=== PATIENT | female | born 1980 | race African-American/Black ===

== ENCOUNTER 2024-05-19 09:37 | Emergency (ER) | payer MEDICAID ==
[~2024-05-19] VITALS: Ht 172.7 cm; Wt 95.0 kg
[~2024-05-19 09:37] MED LIST: PREN-88 PO
[2024-05-19 09:42] VITALS: O2SAT 96
[2024-05-19 10:14] LABS: BASOPHILS % 0.9 % (0.0-2.0); EOSINOPHILS % 5.1 % (0.0-5.0); HEMATOCRIT. 39.3 % (36.0-48.0); HEMOGLOBIN. 12.3 g/dL (12.0-16.0); LYMPHOCYTES % 28.3 % (20.0-50.0); MEAN CORPUSCULAR HEMOGLOBIN 26.1 pg (28.0-32.0); MEAN CORPUSCULAR HGB CONC 31.4 g/dL (31.0-37.0); MEAN CORPUSCULAR VOLUME 83.1 fL (81.0-99.0); MEAN PLATELET VOLUME 7.9 fl (7.4-10.4); MONOCYTES % 5.9 % (2.0-8.0); NEUTROPHILS % 59.8 % (40.0-76.0); PLATELET 312 x1000/uL (130-400); RED BLOOD CELL COUNT 4.73 mill/uL (4.2-5.4); WHITE BLOOD COUNT 6.9 x1000/uL (4.5-11.0)
[2024-05-19 10:21] LABS: CHLORIDE 104 mEq/L (98-107); SODIUM 137 mEq/L (136-145)
[2024-05-19 10:22] LABS: CALCIUM 9.1 mg/dL (8.7-10.4); CARBON DIOXIDE 29 mEq/L (21-32)
[2024-05-19 10:27] LABS: GLUCOSE 96 mg/dL (70-105); UREA NITROGEN BLOOD 10 mg/dL (9-23)
[2024-05-19 10:28] LABS: TROPONIN I HIGH SENSITIVITY 16 ng/L (3.0-34)
[2024-05-19] MEDS ORDERED: DIPHENHYDRAMINE 50MG CAPSULE PO ONE (10:30)
[2024-05-19] MEDS ORDERED: DEXAMETHASONE 1MG TABLET PO ONE (10:30)
[2024-05-19 10:41] VITALS: BP 226/145; PULSE 94; RESP 22; TEMP 36.66960; O2SAT 99
[2024-05-19] MEDS: FAMOTIDINE 20MG TABLET PO ONE (10:54)
[2024-05-19] MEDS: DIPHENHYDRAMINE 25MG CAPSULE PO NR (10:54)
[2024-05-19] MEDS: DEXAMETHASONE 4MG/ML 1ML VIAL PO STA (10:55)
[2024-05-19] MEDS: AMLODIPINE 5MG TABLET PO ONE (10:55)
[2024-05-19 10:59] LABS: HCG SCREEN NEGATIVE
[2024-05-19] MEDS: EPINEPHRINE 1:1000 1 MG/ML AMP IM ONE (11:06)
[2024-05-19 12:32] LABS: TROPONIN I HIGH SENSITIVITY 12 ng/L (3.0-34)
[2024-05-19] MEDS ORDERED: TC1C15 TP (14:33)
== END 2024-05-19 14:46 | disposition home or self-care (01) ==
LOC: ER 09:37
DX: T78.2XXA Anaphylactic shock, unspecified, initial encounter (principal); R22.0 Localized swelling, mass and lump, head; J45.909 Unspecified asthma, uncomplicated; Z91.041 Radiographic dye allergy status; Z88.8 Allergy status to other drugs, medicaments and biological substances; Z88.0 Allergy status to penicillin; X58.XXXA Exposure to other specified factors, initial encounter; Y93.89 Activity, other specified; Y92.89 Other specified places as the place of occurrence of the external cause; Y99.8 Other external cause status
CPT/HCPCS: 80048; 84703; 85025; 84484; 36415; 71045; 76881; 93005; 96372; 99291; J8540; Q0163; J1100; J3490; Z7610 ×2